=== PATIENT | female | born 1990 | race Caucasian/White ===

== ENCOUNTER 2016-07-29 12:48 | Emergency (ER) | payer BC, OTHER ==
[2016-07-29 13:01] VITALS: BP 114/76
[2016-07-29] MEDS ORDERED: ONDANSETRON 4 MG TAB.RAPDIS PO ONE (13:19)
[2016-07-29] MEDS ORDERED: ONDANSETRON 4 MG TAB.RAPDIS ONE (13:20)
--- NOTE | 2016-07-29 13:23 | ERNOTE ---
Medical Problem HPI - Narrative Date of Service: 07/29/16 - General Chief Complaint: Nausea/Vomiting Time Seen by Provider: 07/29/16 13:03 Source: patient Exam Limitations: no limitations - Immun/Allergies/Home Medications Immunizations: IMMUNIZATION HX Immunizations Up to Date Yes History of Influenza Vaccine No Hx Pneumococcal Vaccination No Allergies/Adverse Reactions: Allergies tetracaine Allergy (Mild, Verified 07/29/16 13:01) Hives aspirin Allergy (Verified 07/29/16 13:01) Tetracyclines Allergy (Verified 07/29/16 13:01) Home Medications: HOME MEDICATIONS Cyclobenzaprine HCl [Flexeril] 10 mg PO TID PRN 07/29/16 [Last Taken Unknown] HYDROcodone/ACETAMINOPHEN [Hernandez 5-325] 1 tab PO Q4H PRN 07/29/16 [Last Taken Unknown] Ondansetron [Zofran Odt] 4 mg PO Q6H PRN #20 tab 07/29/16 [Last Taken Unknown] Topiramate [Topamax] 100 mg PO DAILY 07/29/16 [Last Taken Unknown] Venlafaxine HCl [Effexor] 75 mg PO DAILY 07/29/16 [Last Taken Unknown] - History of Present History Narrative: Pt. comes in with c/o nausea and diarrhea since 0200 yesterday. Pt. states taht she felt fine after dinner but awoke in the middle of the night with abd cramps and diarrhea. Pt. states that despite the nausea she has not had any nausea and states that water makes the diarrhea worse but soda makes it slightly better. Pt. states that she took a vicodin to feel better despite not having any pain it did not help with the diarrhea or malaise. Review of Systems - Review of Systems Constitutional: Present: fatigue, malaise. Absent: recent illness, fever, chills EYE: Present: no symptoms reported ENT: Present: no symptoms reported Respiratory: Present: no symptoms reported. Absent: shortness of breath, cough , wheezing Cardiology: Present: no symptoms reported. Absent: chest pain, palpitations, edema Gastrointestinal/Abdominal: Present: nausea, diarrhea, eating less. Absent: vomiting, abdominal pain, drinking less Musculoskeletal: Present: no symptoms reported. Absent: back pain, joint pain Skin: Present: no symptoms reported. Absent: rash, change in color Neurological: Present: no symptoms reported. Absent: headache, dizziness/light- headedness, numbness, tingling All Other Systems: All systems neg except as marked - Patient's Past Medical History Patient History - Medical: Anxiety, Fibromyalgia Patient History - Cardiac/Respiratory: No pertinent hx Patient History - Cancer: No Hx of Cancer Patient History - Surgical Procedures: Other Patient History - Other: None - Social History Living Situations: alone Abuse History: No History of abuse Psych History: No pertinent hx Smoking Status: Former smoker Have you smoked in the past 12 months: Yes Alcohol Use: none Drug Use: none - Immunizations Immunizations Up to Date: Yes Hx Pneumococcal Vaccination: No History of Influenza Vaccine: No Physical Exam - Physical Exam General Appearance: Present: wd/wn, alert, no apparent distress Eye Exam: Normal inspection: bilateral, PERRL: bilateral, EOMI: bilateral Ears, Nose, Throat: Present: normal ENT inspection, normal pharynx Neck: Present: normal inspection, nontender. Absent: lymphadenopathy (R), lymphadenopathy (L) Respiratory: Present: no respiratory distress, normal breath sounds, no accessory muscle use, chest nontender, lungs clear Cardiovascular/Chest: Present: regular rate, rhythm, no murmur, normal peripheral pulses Gastrointestinal/Abdominal: Present: normal bowel sounds, nontender, nondistended, soft, no organomegaly Back Exam: Present: normal inspection, normal range of motion, no CVA tenderness , no vertebral tenderness Extremity Exam: Present: normal inspection, non-tender, normal range of motion, no edema Neurological Exam: Present: alert, oriented, normal mood/affect, no motor/ sensory deficits, box puller II-XII nml as tested, normal cerebellar test Skin Exam: Present: warm/dry, pallor. Absent: skin rash ED Progress - Date and Time Seen: Date and Time: 07/29/16 14:06 Pt. with leukocytes in urine but with 10-25 epithelial cells so feel that it is a dirty catch will not treat with abx unless culture shows an infection. - Results and Orders Patient's Lab Results:: I have reviewed the patient's lab results. - Vital Signs Patient's Vital Signs:: I have reviewed the patient's vital signs. Vital Signs: Vital Signs 07/29/16 12:58 Temperature 36.7 C Pulse Rate 111 H Respiratory 14 Rate Blood Pressure 114/76 O2 Sat by Pulse 98 Oximetry - Progress/Reassessment Chief Complaint: Nausea/Vomiting Progress:: Improved Departure - Departure Clinical Impression: Viral gastroenteritis Disposition: Home self-care Condition: Good Instructions: Viral Gastroenteritis, Adult, [id number] Additional Instructions: Please follow up with 2-3 days with priomary provider if not improved. Referrals: Lia Ferreira FNP [Primary Care Provider] - Prescriptions: Ondansetron [Zofran Odt] 4 mg PO Q6H PRN #20 tab PRN Reason: Nausea
[2016-07-29 13:39] LABS: Hemoglobin 14.2 gm/dL (12.5-16.0); Mean Cell Volume 89.7 fl (78-100); Mean Corpuscular Hemoglobin 30.3 pg (27-31); Mean Corpuscular Hgb Conc 33.8 g/dl (32-36); Mean Platelet Volume 10.5 fl (6.0-9.5); Neutrophil % 75.1 % (42-75.0); Platelet Count 270 K/mm3 (150-450); Red Blood Count 4.68 M/mm3 (4.2-5.4); Red Cell Distribution Width 12.6 % (11.5-14.0); White Blood Count 9.3 K/mm3 (4.0-10.5)
[2016-07-29 13:50] LABS: Albumin * 4.1 gm/dl (3.4-5.0); Anion Gap 13.4 mmol/L (6.8-13.8); BUN/Creatinine Ratio 12.9 (9.0-21.6); Bilirubin, Total 0.3 mg/dL (0.0-1.1); Ca. Corrected For Albumin 8.5 mg/dL (8.4-10.2); Calcium * 8.9 mg/dL (7.9-10.9); Carbon Dioxide 28.1 mmol/L (24-32.6); Potassium 3.5 mmol/L (3.4-4.6)
[2016-07-29 14:01] LABS: Urine Bilirubin Negative (NEGATIVE); Urine Blood Negative /ul (NEGATIVE); Urine Ketone Negative (NEGATIVE); Urine Nitrite Negative (NEGATIVE); Urine Protein Negative (NEGATIVE); Urine Specific Gravity 1.025 SP.GR. (1.005-1.010); Urine Urobilinogen Normal (NORMAL); Urine pH 5.5 pH (5.0-7.0)
[2016-07-29 14:02] LABS: Urine Appearance Cloudy; Urine Bacteria TRACE; Urine Color Yellow; Urine RBC 0-5 /hpf (0-5); Urine WBC 0-5 /hpf (0-5)
== END 2016-07-29 14:15 | disposition home or self-care (01) ==
LOC: ER 12:48
DX: A08.4 Viral intestinal infection, unspecified (principal); Z72.0 Tobacco use; F41.9 Anxiety disorder, unspecified; M79.7 Fibromyalgia

== ENCOUNTER 2016-08-13 17:37 | Emergency (ER) | payer BC ==
[2016-08-13 18:10] VITALS: BP 112/82
[2016-08-13] MEDS ORDERED: ALBUTEROL SULFATE/IPRATROPIUM 3 ML NEBU IH ONE ×2 (19:00→19:05)
[2016-08-13] MEDS ORDERED: AZITHROMYCIN 250 MG TABLET PO ONE (19:02)
--- NOTE | 2016-08-13 19:18 | ERNOTE ---
Date of Service: 08/13/16 Time Seen by Provider: 08/13/16 18:49 Stated Complaint: SORE THROAT. SINUS PAIN. Presenting Symptoms:: cough, sore throat Source: patient Exam Limitations: no limitations Immunizations: IMMUNIZATION HX Immunizations Up to Date Yes History of Influenza Vaccine No Hx Pneumococcal Vaccination No Allergies/Adverse Reactions: Allergies tetracaine Allergy (Mild, Verified 07/29/16 13:01) Hives aspirin Allergy (Verified 07/29/16 13:01) Tetracyclines Allergy (Verified 07/29/16 13:01) Home Medications: HOME MEDICATIONS Cyclobenzaprine HCl [Flexeril] 10 mg PO TID PRN 07/29/16 [Last Taken Unknown] Ondansetron [Zofran Odt] 4 mg PO Q6H PRN #20 tab 07/29/16 [Last Taken Unknown] Topiramate [Topamax] 100 mg PO DAILY 07/29/16 [Last Taken Unknown] Venlafaxine HCl [Effexor] 75 mg PO DAILY 07/29/16 [Last Taken Unknown] Azithromycin [Zithromax] 500 mg PO NOW #6 tab 08/13/16 [Last Taken Unknown] - History of Present Ilness Narrative: 25-year-old female presents to the emergency room with sinus pain and nasal drainage and cough. States she has had sinus pressure and pain for the last 10 days. Patient states that she has been taking [id number] NyQuil and pain medicine and has had no relief. She states she has had green sinus drainage for the last 3 days. Date (Duration): 08/13/16 Timing: constant Severity: moderate Frequency/Possible Cause: Reports: no prior episodes Modifying Factors - Improves: Reports: rest Modifying Factors - Worsens: Reports: activity Associated Symptoms: Reports: cough, facial pain, nasal congestion, nasal drainage, headache, sore throat, fever/chills. Denies: chest pain/soreness Review of Systems - Review of Systems Constitutional: Present: See HPI, fever EYE: Present: no symptoms reported ENT: Present: See HPI, nose congestion, nasal drainage Respiratory: Present: See HPI Cardiology: Present: no symptoms reported Gastrointestinal/Abdominal: Present: no symptoms reported Genitourinary: Present: no symptoms reported Musculoskeletal: Present: no symptoms reported Skin: Present: no symptoms reported Neurological: Present: no symptoms reported Endocrine: Present: no symptoms reported Hematologic/Lymphatic: Present: no symptoms reported Psych: Present: no symptoms reported - Patient's Past Medical History Patient History - Medical: Anxiety, Fibromyalgia Patient History - Cardiac/Respiratory: No pertinent hx Patient History - Cancer: No Hx of Cancer Patient History - Surgical Procedures: Other Patient History - Other: None LMP (females 10-50): 3 weeks - Social History Living Situations: home Abuse History: No History of abuse Psych History: No pertinent hx Smoking Status: Former smoker Have you smoked in the past 12 months: Yes Do you dip or chew tobacco: No Patient requests Smoking Cessation Consult: No Initiate information on Smoking Cessation: No Alcohol Use: none Drug Use: none - Immunizations Immunizations Up to Date: Yes Hx Pneumococcal Vaccination: No History of Influenza Vaccine: No Physical Exam - Physical Exam Narrative: This 25-year-old female slightly puffy around her eyes, mucous observed in the back of her throat, lung sounds were auscultated and expiratory wheezes heard. General Appearance: Present: wd/wn, alert, no apparent distress Eye Exam: Normal inspection: bilateral Ears, Nose, Throat: Present: sinus pain/drainage. Absent: tonsillar exudate Neck: Present: normal inspection, full range of motion Respiratory: Present: no respiratory distress, wheezing Cardiovascular/Chest: Present: regular rate, rhythm Gastrointestinal/Abdominal: Present: normal bowel sounds, soft Back Exam: Present: no vertebral tenderness Extremity Exam: Present: normal inspection, no edema Neurological Exam: Present: alert, oriented, normal mood/affect Skin Exam: Present: normal color Lymphatic Exam: Present: no adenopathy ED Progress - Vital Signs Patient's Vital Signs:: I have reviewed the patient's vital signs. Vital Signs: Vital Signs 08/13/16 18:00 Temperature 36.9 C Pulse Rate 102 H Respiratory 18 Rate Blood Pressure 112/82 O2 Sat by Pulse 99 Oximetry - Progress/Reassessment Chief Complaint: Upper Respiratory Symptoms Progress:: Improved Departure - Departure Clinical Impression: Sinusitis nasal Qualifiers: Sinusitis location: frontal Chronicity: unspecified Qualified Code(s): J32.1 - Chronic frontal sinusitis Disposition: Home self-care Condition: Stable Instructions: Sinusitis, Adult, [id number] Additional Instructions: Continue your previous home medications. Please complete all antibiotics as directed. Return to emergency room if fever is uncontrolled by over-the- counter medications or feeling worse. He turned the emergency room if he becomes short of breath. Follow-up with your primary care physician if needed. Drink plenty of fluids and rest. Referrals: Briseida Skelton MD [Primary Care Provider] - Prescriptions: Azithromycin [Zithromax] 500 mg PO NOW #6 tab
[2016-08-13] MEDS ORDERED: AZITHROMYCIN 250 MG TABLET ONE (19:19)
== END 2016-08-13 19:23 | disposition home or self-care (01) ==
LOC: ER 17:37
DX: J32.1 Chronic frontal sinusitis (principal); Z72.0 Tobacco use; F41.9 Anxiety disorder, unspecified; M79.7 Fibromyalgia

== ENCOUNTER 2017-01-24 13:24 | Emergency (ER) | payer SELFPAY ==
[2017-01-24 14:11] LABS: Urine Bilirubin Negative (NEGATIVE); Urine Blood Negative /ul (NEGATIVE); Urine Ketone Negative (NEGATIVE); Urine Nitrite Negative (NEGATIVE); Urine Protein Negative (NEGATIVE); Urine Urobilinogen Normal (NORMAL)
[2017-01-24 14:26] LABS: Urine Appearance Clear; Urine Bacteria 2+; Urine Color Yellow; Urine RBC None Seen /hpf (0-5)
--- NOTE | 2017-01-24 15:06 | ERNOTE ---
ER Female HPI Date of Service: 01/24/17 Stated Complaint: UTI/ TEST Time Seen by Provider: 01/24/17 15:00 Source: patient Exam Limitations: no limitations Immunizations: IMMUNIZATION HX Immunizations Up to Date Yes History of Influenza Vaccine No Hx Pneumococcal Vaccination No Allergies/Adverse Reactions: Allergies tetracaine Allergy (Mild, Verified 01/24/17 14:00) Hives aspirin Allergy (Verified 01/24/17 14:00) Tetracyclines Allergy (Verified 01/24/17 14:00) Home Medications: HOME MEDICATIONS Cyclobenzaprine HCl [Flexeril] 10 mg PO TID PRN 07/29/16 [Last Taken Unknown] Venlafaxine HCl [Effexor] 75 mg PO DAILY 07/29/16 [Last Taken Unknown] Sulfamethoxazole/Trimethoprim [Bactrim Ds] 1 tab PO BID #10 tab 01/24/17 [Last Taken Unknown] - History of Present Illness Narrative: 26yo, F, presents to ER for concerns of UTI and irregular menses. She notes LMP 12/11/16, which is unusual for her as she is normally regular. She has had negative tests at home. She does have a hx of negative urine test and positive blood test with past pregnancies. UTI symptoms include frequency, dysuria and strong urine odor. Activities at Onset: Present: none Sexual [place] History: Present: less than 2 months ago, single partner. Absent: exposure to STD Modifying Factors - (Improves): Present: other - increased fluids and cranberry juice Associated Symptoms: Absent: fever/chills, nausea, vomiting Review of Systems - Review of Systems Constitutional: Present: fatigue. Absent: fever, chills, diaphoresis, malaise Gastrointestinal/Abdominal: Absent: nausea, vomiting, diarrhea Genitourinary: Present: frequency, dysuria, other - strong urine odor, cloudy urine. Absent: hematuria Skin: Absent: rash - Patient's Past Medical History Patient History - Medical: Anxiety, Fibromyalgia Patient History - Cardiac/Respiratory: No pertinent hx Patient History - Cancer: No Hx of Cancer Patient History - Surgical Procedures: Other Patient History - Other: None - Social History Living Situations: home Abuse History: No History of abuse Psych History: No pertinent hx Alcohol Use: none Drug Use: none - Immunizations Immunizations Up to Date: Yes Hx Pneumococcal Vaccination: No History of Influenza Vaccine: No Physical Exam - Physical Exam General Appearance: Present: wd/wn, alert, no apparent distress Respiratory: Present: no respiratory distress, no accessory muscle use. Absent : rales, rhonchi, wheezing Cardiovascular/Chest: Present: regular rate, rhythm Gastrointestinal/Abdominal: Present: normal bowel sounds, nondistended, soft, other - mild tenderness to LUQ and RUQ, no lower abd tenderness Skin Exam: Present: normal color, warm/dry ED Progress - Date and Time Seen: Date and Time: 01/24/17 16:08 Reviewed dc plan and instructions with pt - Results and Orders Patient's Lab Results:: I have reviewed the patient's lab results. - Vital Signs Patient's Vital Signs:: I have reviewed the patient's vital signs. Vital Signs: Vital Signs 01/24/17 13:47 Temperature 36.5 C Pulse Rate 104 H Respiratory 14 Rate Blood Pressure 134/101 O2 Sat by Pulse 98 Oximetry - Progress/Reassessment Chief Complaint: Genitourinary Problem Departure Clinical Impression: Irregular menses UTI (urinary tract infection) Qualifiers: Urinary tract infection type: acute cystitis Hematuria presence: without hematuria Qualified Code(s): N30.00 - Acute cystitis without hematuria - Departure Disposition: Home self-care Condition: Good Instructions: Urinary Tract Infection, Adult, [id number] Additional Instructions: Increase fluids Take medications as prescribed If you do not have your period in the next 1-2 weeks repeat test and follow up with your banquet captain Referrals: Lia Ferreira FNP [Primary Care Provider] - Prescriptions: Sulfamethoxazole/Trimethoprim [Bactrim Ds] 1 tab PO BID #10 tab
[2017-01-24 16:26] VITALS: BP 126/90
== END 2017-01-24 16:26 | disposition home or self-care (01) ==
LOC: ER 13:24
DX: N92.6 Irregular menstruation, unspecified (principal); N30.00 Acute cystitis without hematuria; M79.7 Fibromyalgia; F41.9 Anxiety disorder, unspecified